=== PATIENT | female | born 1985 | race Caucasian/White ===

== ENCOUNTER 2017-05-17 22:18 | Emergency (ER) | payer MEDICAID ==
[~2017-05-17] VITALS: Ht 180.3 cm; Wt 61.2 kg
[2017-05-17 22:40] VITALS: BP 110/71
== END 2017-05-18 00:20 | disposition home or self-care (01) ==
LOC: ER 22:18
DX: S92.531A Displaced fracture of distal phalanx of right lesser toe(s), initial encounter for closed fracture (principal); W18.39XA Other fall on same level, initial encounter; Y93.89 Activity, other specified; Y92.89 Other specified places as the place of occurrence of the external cause; Y99.8 Other external cause status
CPT/HCPCS: 73630; 99284; A4606; Z7610

== ENCOUNTER 2019-12-23 14:11 | Emergency (ER) | payer MEDICAID ==
[~2019-12-23] VITALS: Ht 180.3 cm; Wt 66.2 kg
[2019-12-23 14:15] VITALS: BP 118/81
--- NOTE | 2019-12-23 14:15 | NUR ---
BIB C/O L KNEE PAIN SINCE TUESDAY "I ACCIDENTALY HIT MY KNEE ON THE TABLE". TO ER BED 10, HOOKED TO MONITOR, CHANGED TO HOSP GOWN, WARM BLANKET PROVIDED, AWAITING MD MELVIN.
--- NOTE | 2019-12-23 15:05 | NUR ---
DECK OFFICER AT [facility] FOR XRAY.
--- NOTE | 2019-12-23 15:40 | NUR ---
KNEE IMMOBILIZER APPLIED BY CONSUMER INSIGHT MANAGER.
--- NOTE | 2019-12-23 15:42 | NUR ---
Patient discharged to home in stable condition. Written and verbal after care instructions given. Patient verbalizes understanding of instruction.
== END 2019-12-23 15:43 | disposition home or self-care (01) ==
LOC: ER 14:14
DX: S80.02XA Contusion of left knee, initial encounter (principal); W22.8XXA Striking against or struck by other objects, initial encounter; Y93.89 Activity, other specified; Y92.89 Other specified places as the place of occurrence of the external cause; Y99.8 Other external cause status
CPT/HCPCS: 73564-TC

== ENCOUNTER 2020-02-04 19:14 | Emergency (ER) | payer MEDICAID ==
[~2020-02-04] VITALS: Ht 180.3 cm; Wt 78.0 kg
--- NOTE | 2020-02-04 19:32 | NUR ---
BIBRA FOR C/O L ELBOW AND LFA PAIN S/P FALL IN THE PLAY GROUND. DENIED HITTING HER HEAD OR KO. NOTED W/ SWELLING ON L ELBOW.
[2020-02-04] MEDS ORDERED: ONDANSETRON 4 MG TAB.RAPDIS ONE (19:39)
[2020-02-04] MEDS ORDERED: HYDROCODONE/APAP 5/325MG TABLET ONE (19:39)
--- NOTE | 2020-02-04 19:41 | NUR ---
X RAY AT BED SIDE
[2020-02-04] MEDS ORDERED: ONDANSETRON 4 MG TAB.RAPDIS PO ONE (20:00)
[2020-02-04] MEDS ORDERED: HYDROCODONE/APAP 5/325MG TABLET PO ONE (20:00)
--- NOTE | 2020-02-04 20:44 | NUR ---
EMT AT BED SIDE TO APPLY SPLINT
--- NOTE | 2020-02-04 21:05 | NUR ---
pt is medically stable for d/c. long arm splint applied. pt was instructed to f/u w. an ortho in 24hrs. Patient discharged to home in stable condition. Rx and Written and verbal after care instructions given. Patient verbalizes understanding of instruction. pt wsa picked up by her
[2020-02-04 21:08] VITALS: BP 108/76
== END 2020-02-04 21:08 | disposition home or self-care (01) ==
LOC: ER 19:16
DX: S52.092A Other fracture of upper end of left ulna, initial encounter for closed fracture (principal); W01.0XXA Fall on same level from slipping, tripping and stumbling without subsequent striking against object, initial encounter; Y93.89 Activity, other specified; Y92.89 Other specified places as the place of occurrence of the external cause; Y99.8 Other external cause status
CPT/HCPCS: 29105; 73070; 73090; 99284; Q0162